=== PATIENT | male | born 1975 | race Caucasian/White ===

== ENCOUNTER 2020-09-14 16:09 | Emergency (ER) | payer OTHER ==
[~2020-09-14 16:09] MED LIST: BACTRIM DS TAB1 EACH PO; HYDROXYZINE PAM50 MG PO; KEFLEX500 MG PO; NEURONTIN 400400 MG PO; OXYMORPHONE HCL15 MG PO; PERCOCET 5-3251 EACH PO; PROTONIX 40 MG40 M1 PO
[2020-09-14] MEDS ORDERED: IBU800 MG PO (17:25)
== END 2020-09-14 17:45 | disposition home or self-care (01) ==
LOC: ER1 16:09
DX: S93.401A Sprain of unspecified ligament of right ankle, initial encounter (principal); S90.31XA Contusion of right foot, initial encounter; I10 Essential (primary) hypertension; E78.5 Hyperlipidemia, unspecified; Z88.0 Allergy status to penicillin; F17.210 Nicotine dependence, cigarettes, uncomplicated; Y92.009 Unspecified place in unspecified non-institutional (private) residence as the place of occurrence of the external cause; X58.XXXA Exposure to other specified factors, initial encounter
CPT/HCPCS: 73610; 73630; 99283; J1885

== ENCOUNTER 2020-12-07 01:18 | Emergency (ER) | payer OTHER ==
[~2020-12-07 01:18] MED LIST changes: +IBU800 MG PO
== END 2020-12-07 03:40 | disposition home or self-care (01) ==
LOC: ER1 01:18
DX: S49.91XA Unspecified injury of right shoulder and upper arm, initial encounter (principal); F17.210 Nicotine dependence, cigarettes, uncomplicated; Z88.0 Allergy status to penicillin; W22.8XXA Striking against or struck by other objects, initial encounter
CPT/HCPCS: 73060; 99283

== ENCOUNTER → 2021-04-04 | Outpatient (CLI) | payer OTHER | LOC: US 11:30 | DX: M17.12 Unilateral primary osteoarthritis, left knee (principal); I82.409 Acute embolism and thrombosis of unspecified deep veins of unspecified lower extremity | CPT/HCPCS: 73562; 93971 ==